=== PATIENT | female | born 1990 | race Caucasian/White ===

== ENCOUNTER 2017-04-24 00:48 | Emergency (ER) | payer OTHER ==
[~2017-04-24 00:48] MED LIST: ULTRAM PO
[2017-08-14] MEDS ORDERED: [UNRECOGNIZED DRUG - OTHER] (18:31)
== END 2017-04-24 01:55 | disposition home or self-care (01) ==
LOC: SED 00:48
DX: L02.211 Cutaneous abscess of abdominal wall (principal); L03.311 Cellulitis of abdominal wall
CPT/HCPCS: 10060; 99283